=== PATIENT | female | born 1965 | race Asian ===

== ENCOUNTER → 2016-06-07 | Outpatient (CLI) | payer OTHER ==
[~2016-06-07] MED LIST: CALCTAB5 PO; CHOL100010 PO; CYAN10005 PO
--- NOTE | 2016-06-08 13:36 | MAMMOGRAPHY REPORT ---
BILATERAL DIGITAL SCREENING MAMMOGRAM TOMOSYNTHESIS WITH CAD: 06/07/2016 CLINICAL HISTORY: Routine screening. Patient has no complaints. TECHNIQUE: Breast tomosynthesis in addition to standard 2D mammography was performed. Current study was also evaluated with a Computer Aided Detection (CAD) system. COMPARISON: Comparison is made to exams dated: 06/05/2015 mammogram, 05/31/2013 mammogram, 11/20/2014 m ammogram, 06/06/2014 ultrasound, 06/06/2014 mammogram, and 06/03/2014 mammogram - [facility]. BREAST COMPOSITION: The tissue of both breasts is heterogeneously dense, which may obscure small ma sses. FINDINGS: There are bilateral circumscribed masses scattered in the breasts, fluctuating in size com paring to prior mammograms, most compatible with fluctuating cysts. No suspicious spiculated or irr egular mass, focal area of architectural distortion or cluster of suspicious microcalcifications is seen. IMPRESSION: ACR BI-RADS CATEGORY 1: NEGATIVE There is no mammographic evidence of malignancy. A 1 year screening mammogram is recommended. The p atient will receive written notification of the results. Approximately 10% of breast cancers are not detected with mammography. A negative mammographic repor t should not delay biopsy if a clinically suggestive mass is present. Rosa Cortez M.D. ay/:06/07/2016 16:06:36 It Consulting Director: Juve MULLER(R)(M), [facility] letter sent: Normal 1/2 BI-RADS Code: ACR BI-RADS Category 1: Negative
== END | disposition home or self-care (01) ==
LOC: C.MAMM 10:24
PROVIDERS: ATTEND Nurse Practitioner Family
DX: Z12.31 Encounter for screening mammogram for malignant neoplasm of breast (principal)

== ENCOUNTER → 2016-08-24 | Outpatient (CLI) | payer OTHER | END | disposition home or self-care (01) | LOC: C.CPL 14:45 | PROVIDERS: ATTEND Orthopaedic Surgery Sports Medicine | DX: Z96.9 Presence of functional implant, unspecified (principal) ==

== ENCOUNTER → 2016-11-26 | Outpatient (CLI) | payer OTHER ==
[2016-11-26 11:49] LABS: ALT/SGPT 31 U/L (12-78); AST/SGOT 22 U/L (15-37); BLOOD UREA NITROGEN 15 mg/dl (7-18); BUN/CREATININE RATIO 20.6 (10-20); CALCIUM 8.9 mg/dl (8.5-10.1); CARBON DIOXIDE 27 mmol/L (21-32); CHLORIDE 111 mmol/L (98-107); CHOLESTEROL 168 mg/dl (0-200); CREATININE 0.73 mg/dl (0.60-1.20); GLUCOSE 86 mg/dl (70-99); SODIUM 141 mmol/L (136-145)
[2016-11-26 11:51] LABS: ALB/GLOB RATIO 1.2 (0.9-2); ALKALINE PHOSPHATASE 66 U/L (45-117); CHOLESTEROL/HDL RATIO 2.5; HDL CHOLESTEROL 67 mg/dl; LDL CHOLESTEROL CALCULATED 82 mg/dl; TRIGLYCERIDES 96 mg/dl (0-150); VERY LOW DENSITY LIPOPROT CALC 19 mg/dl
== END | disposition home or self-care (01) ==
LOC: C.LABBC 08:02
PROVIDERS: ATTEND Nurse Practitioner Family
DX: Z13.1 Encounter for screening for diabetes mellitus (principal); Z13.220 Encounter for screening for lipoid disorders; Z11.59 Encounter for screening for other viral diseases

== ENCOUNTER → 2016-12-08 | Outpatient (CLI) | payer OTHER ==
[~2016-12-08] MED LIST changes: +GADAVIST IV PRN
--- NOTE | 2016-12-08 10:32 | DIAGNOSTIC IMAGING REPORT ---
BRAIN COMBO HISTORY: 51 years-old Female D32.[id number] [id number] E [id number] acute dizziness with history of meningioma. Surgery in 1998. Acute headaches with visual changes. COMPARISON: Brain MR 07/21/2015 TECHNIQUE: Multiplanar multisequence MRI the brain was obtained following the intravenous administration of 6 mL Gadavist. FINDINGS: There is no restricted diffusion to suggest acute ischemia. Midline structures including the corpus callosum, brainstem, optic chiasm, pituitary and pineal glands are unremarkable in the sagittal T1 sequence. No cerebellar tonsillar herniation. No pathologic parenchymal blooming artifact identified. Micrometallic artifact is noted within the region of the surgical bed adjacent to the left parietal lobe. Mild volume loss, gliosis and encephalomalacia is seen within the distribution with an avidly enhancing dural based 7 x 5 x 5 mm lesion seen nicely on image 21 of series 10 and image 18 of series 9, previously measuring 6 x 5 x 5 mm on study dated 07/21/2015 when measured in a similar fashion. No new enhancing lesions are identified. Minimal periventricular and subcortical T2/FLAIR prolongation is again seen suggesting background chronic microvascular ischemic changes. No acute intracranial hemorrhage, midline shift, abnormal extra-axial collections or hydrocephalus identified. Major flow voids at the skull base appear patent. Orbits are symmetric. Mastoid air cells and middle ear cavities are generally clear. IMPRESSION: 1. Stable exam with unchanged size of a circumscribed subcentimeter avidly enhancing dural based lesion at the surgical bed adjacent to the left parietal lobe suggesting recurrent or residual meningioma. 2. Mild gliosis and encephalomalacia is again seen within the left parietal lobe at the area of postsurgical change. 3. Mild background chronic microvascular ischemic changes. 4. No acute intracranial abnormality. The above report was generated using voice recognition software. It may contain grammatical, syntax or spelling errors. Electronically signed by: Orlando Sequeira M.D. 12/08/2016 10:31 AM Dictated Date/Time: 12/08/2016 10:24 AM
== END | disposition home or self-care (01) ==
LOC: C.MRIBC 09:22
PROVIDERS: ATTEND Nurse Practitioner Family
DX: D32.9 Benign neoplasm of meninges, unspecified (principal); R42 Dizziness and giddiness

== ENCOUNTER → 2017-06-08 | Outpatient (CLI) | payer OTHER ==
[~2017-06-08] MED LIST changes: -GADAVIST IV PRN
--- NOTE | 2017-06-09 07:50 | MAMMOGRAPHY REPORT ---
BILATERAL DIGITAL SCREENING MAMMOGRAM TOMOSYNTHESIS WITH CAD: 06/08/2017 CLINICAL HISTORY: Routine screening. Patient has no complaints. TECHNIQUE: Breast tomosynthesis in addition to standard 2D mammography was performed. Current study was also evaluated with a Computer Aided Detection (CAD) system. COMPARISON: Comparison is made to exams dated: 06/07/2016 mammogram, 06/05/2015 mammogram, 11/20/2014 ma mmogram, 06/06/2014 ultrasound, 06/03/2014 mammogram, and 05/31/2013 mammogram - [facility] enter. BREAST COMPOSITION: The tissue of both breasts is heterogeneously dense, which may obscure small mas ses. FINDINGS: No suspicious masses, calcifications, or areas of architectural distortion are noted in ei ther breast. There has been no significant interval change compared to prior exams. Circumscribed be nign-appearing left breast masses are not significantly changed. IMPRESSION: ACR BI-RADS CATEGORY 2: BENIGN There is no mammographic evidence of malignancy. A 1 year screening mammogram is recommended. The pa tient will receive written notification of the results. Approximately 10% of breast cancers are not detected with mammography. A negative mammographic report should not delay biopsy if a clinically suggestive mass is present. Migdalia Enrique M.D. ah/:06/08/2017 12:03:22 Distribution Dispatcher: Etelvina HINSON)(Linda), [facility] letter sent: Normal 1/2 BI-RADS Code: ACR BI-RADS Category 2: Benign
== END | disposition home or self-care (01) ==
LOC: C.MAMM 10:29
PROVIDERS: ATTEND Nurse Practitioner Family
DX: Z12.31 Encounter for screening mammogram for malignant neoplasm of breast (principal)

== ENCOUNTER 2021-09-07 11:18 | Observation (INO) ==
[2021-09-07] MEDS ORDERED: methylPREDNISolone 125 MG/2 ML VIAL IV STA (11:35)
[2021-09-07] MEDS ORDERED: FAMOTIDINE 20MG IV PUSH 20 MG/5 ML SYR IV STA (11:35)
[2021-09-07] MEDS ORDERED: SODIUM CHLORIDE 0.9% 1000ML 1,000 ML IV ONE (11:35)
[2021-09-07] MEDS ORDERED: EPINEPHrine INJ 1 MG/ML AMP IM STA (11:35)
[2021-09-07] MEDS ORDERED: diphenhydrAMINE 50 MG/ML VIAL IV STA (11:35)
--- NOTE | 2021-09-07 11:54 | Emergency Department Note ---
History of Present Illness General Chief complaint: Allergic Reaction Stated complaint: BEE STING Time Seen by Provider: 09/07/21 11:26 History of Present Illness Maximum Pain Intensity: 5 56-year-old female who presents to the emergency department with her via private transportation for evaluation of a bee sting allergy. The reports that they have for beehives at their home. The patient reports that she was stung by 2 bees this morning. Within approximately 45 minutes, she had taken Tylenol and Benadryl, and is still having persistent symptoms of facial redness, swelling and itching. The patient has been stung by bees twice in the past, and reports that this reaction is much worse. She does not feel any palpitations, shortness of breath or sensation of throat closure. She does not have EpiPen's at home. Home Medications Medication Instructions Recorded Confirmed Type multivitamin 1 tab PO QAM 09/07/21 09/07/21 History tamoxifen 20 mg tablet 20 mg PO QAM 09/07/21 09/07/21 History vitamin E 400 unit tablet 400 unit PO DAILY 09/07/21 09/07/21 History Allergies Allergy/AdvReac Type Severity Reaction Status Date / Time bee pollen Allergy Severe facial Verified 09/07/21 15:40 swelling,urticaria adhesive tape AdvReac Mild SKIN Verified 09/07/21 15:40 SENSITIVE Past Med/Surg History Medical History Ductal carcinoma in situ (DCIS) of left breast Hx of migraines Surgical History History of breast lump/mass excision surgery 03-28-2019 History of bunionectomy RT/LEFT / surgery 2001 and 2002 History of colonoscopy 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 Sister No problems noted. Sister No problems noted. Brother No problems noted. Brother No problems noted. 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 Other Information That Helps Us Care for You: No Feels Safe at Home: Yes Safety Concerns: Feels Safe At This Time Childhood Exposure to Second-Hand Smoke: No Dental Care, Regularly: Yes Physical Activity Frequency: 3-4 Times per Week Seatbelt Use: always Sunscreen Use: Yes Assistive Devices: Glasses Assistive Devices Comment: Reading glasses Review of Systems 10 system review was performed and was negative except for pertinent positives and negatives as indicated in history of present illness Physical Exam Vital Signs Vital Signs - 24 hr 09/07/21 11:23 09/07/21 11:47 09/07/21 12:02 Temperature 37.0 C Temperature Source Oral Pulse Rate 101 H 106 H Pulse Rate [Apical] 74 Pulse Rate from SpO2 Sensor Respiratory Rate 18 22 19 Respiratory Effort / Characteristics Non-Labored Blood Pressure 115/62 Blood Pressure [Left Arm] 78/56 L Blood Pressure Mean 79 Blood Pressure Mean [Left Arm] 63 Pulse Oximetry 93 97 97 Oxygen Delivery Method Room Air Room Air Room Air Sepsis Recent Fever Within 48 Hours No Sepsis New/Unexplained Change in Mental Status No Sepsis Action Taken by Nursing No Action Required Pulse Oximetry Post Tiitration 97 09/07/21 12:09 09/07/21 12:10 09/07/21 12:12 Temperature Temperature Source Pulse Rate 77 78 69 Pulse Rate [Apical] Pulse Rate from SpO2 Sensor 78 78 69 Respiratory Rate 14 18 16 Respiratory Effort / Characteristics Blood Pressure 87/62 L Blood Pressure [Left Arm] Blood Pressure Mean 70 Blood Pressure Mean [Left Arm] Pulse Oximetry 97 96 95 Oxygen Delivery Method Sepsis Recent Fever Within 48 Hours Sepsis New/Unexplained Change in Mental Status Sepsis Action Taken by Nursing Pulse Oximetry Post Tiitration 09/07/21 12:15 09/07/21 12:20 09/07/21 12:30 Temperature Temperature Source Pulse Rate 66 71 64 Pulse Rate [Apical] Pulse Rate from SpO2 Sensor 67 70 65 Respiratory Rate 17 16 16 Respiratory Effort / Characteristics Blood Pressure 88/63 L Blood Pressure [Left Arm] Blood Pressure Mean 71 Blood Pressure Mean [Left Arm] Pulse Oximetry 97 97 97 Oxygen Delivery Method Sepsis Recent Fever Within 48 Hours Sepsis New/Unexplained Change in Mental Status Sepsis Action Taken by Nursing Pulse Oximetry Post Tiitration 09/07/21 12:40 09/07/21 12:45 09/07/21 12:46 Temperature Temperature Source Pulse Rate 69 64 66 Pulse Rate [Apical] Pulse Rate from SpO2 Sensor 69 64 66 Respiratory Rate 17 15 15 Respiratory Effort / Characteristics Blood Pressure 79/57 L 80/54 L Blood Pressure [Left Arm] Blood Pressure Mean 64 62 Blood Pressure Mean [Left Arm] Pulse Oximetry 97 95 97 Oxygen Delivery Method Sepsis Recent Fever Within 48 Hours Sepsis New/Unexplained Change in Mental Status Sepsis Action Taken by Nursing Pulse Oximetry Post Tiitration 09/07/21 12:50 09/07/21 12:53 09/07/21 12:55 Temperature Temperature Source Pulse Rate 65 64 64 Pulse Rate [Apical] Pulse Rate from SpO2 Sensor 65 65 63 Respiratory Rate 19 15 14 Respiratory Effort / Characteristics Blood Pressure 79/51 L 76/45 L 82/47 L Blood Pressure [Left Arm] Blood Pressure Mean 60 55 58 Blood Pressure Mean [Left Arm] Pulse Oximetry 98 99 99 Oxygen Delivery Method Sepsis Recent Fever Within 48 Hours Sepsis New/Unexplained Change in Mental Status Sepsis Action Taken by Nursing Pulse Oximetry Post Tiitration 09/07/21 13:00 09/07/21 13:02 09/07/21 13:03 Temperature Temperature Source Pulse Rate 71 76 79 Pulse Rate [Apical] Pulse Rate from SpO2 Sensor 71 77 Respiratory Rate 15 17 15 Respiratory Effort / Characteristics Blood Pressure 80/48 L 84/48 L Blood Pressure [Left Arm] Blood Pressure Mean 58 60 Blood Pressure Mean [Left Arm] Pulse Oximetry 98 98 Oxygen Delivery Method Sepsis Recent Fever Within 48 Hours Sepsis New/Unexplained Change in Mental Status Sepsis Action Taken by Nursing Pulse Oximetry Post Tiitration 09/07/21 13:05 09/07/21 13:10 09/07/21 13:11 Temperature Temperature Source Pulse Rate 72 78 78 Pulse Rate [Apical] Pulse Rate from SpO2 Sensor Respiratory Rate 13 17 18 Respiratory Effort / Characteristics Blood Pressure 85/45 L 81/45 L Blood Pressure [Left Arm] Blood Pressure Mean 58 57 Blood Pressure Mean [Left Arm] Pulse Oximetry Oxygen Delivery Method Sepsis Recent Fever Within 48 Hours Sepsis New/Unexplained Change in Mental Status Sepsis Action Taken by Nursing Pulse Oximetry Post Tiitration 09/07/21 13:20 09/07/21 13:23 09/07/21 13:24 Temperature Temperature Source Pulse Rate 69 68 70 Pulse Rate [Apical] Pulse Rate from SpO2 Sensor Respiratory Rate 16 17 17 Respiratory Effort / Characteristics Blood Pressure 82/55 L 73/36 L 93/45 L Blood Pressure [Left Arm] Blood Pressure Mean 64 48 61 Blood Pressure Mean [Left Arm] Pulse Oximetry 98 Oxygen Delivery Method Sepsis Recent Fever Within 48 Hours Sepsis New/Unexplained Change in Mental Status Sepsis Action Taken by Nursing Pulse Oximetry Post Tiitration 09/07/21 13:25 09/07/21 13:30 09/07/21 13:40 Temperature Temperature Source Pulse Rate 65 69 66 Pulse Rate [Apical] Pulse Rate from SpO2 Sensor 70 66 Respiratory Rate 16 17 17 Respiratory Effort / Characteristics Blood Pressure 82/55 L 104/44 L 109/47 L Blood Pressure [Left Arm] Blood Pressure Mean 64 64 67 Blood Pressure Mean [Left Arm] Pulse Oximetry 97 96 Oxygen Delivery Method Sepsis Recent Fever Within 48 Hours Sepsis New/Unexplained Change in Mental Status Sepsis Action Taken by Nursing Pulse Oximetry Post Tiitration 09/07/21 13:50 09/07/21 14:00 09/07/21 14:07 Temperature Temperature Source Pulse Rate 68 79 82 Pulse Rate [Apical] Pulse Rate from SpO2 Sensor 69 77 78 Respiratory Rate 17 17 14 Respiratory Effort / Characteristics Blood Pressure 111/46 L 116/52 L 126/55 L Blood Pressure [Left Arm] Blood Pressure Mean 67 73 78 Blood Pressure Mean [Left Arm] Pulse Oximetry 96 98 98 Oxygen Delivery Method Sepsis Recent Fever Within 48 Hours Sepsis New/Unexplained Change in Mental Status Sepsis Action Taken by Nursing Pulse Oximetry Post Tiitration 09/07/21 14:10 09/07/21 14:20 09/07/21 14:30 Temperature Temperature Source Pulse Rate 71 72 69 Pulse Rate [Apical] Pulse Rate from SpO2 Sensor 72 71 69 Respiratory Rate 16 16 14 Respiratory Effort / Characteristics Blood Pressure Blood Pressure [Left Arm] Blood Pressure Mean Blood Pressure Mean [Left Arm] Pulse Oximetry 96 94 95 Oxygen Delivery Method Sepsis Recent Fever Within 48 Hours Sepsis New/Unexplained Change in Mental Status Sepsis Action Taken by Nursing Pulse Oximetry Post Tiitration 09/07/21 14:34 09/07/21 14:40 09/07/21 14:52 Temperature Temperature Source Pulse Rate 70 72 74 Pulse Rate [Apical] Pulse Rate from SpO2 Sensor 70 72 74 Respiratory Rate 15 13 17 Respiratory Effort / Characteristics Blood Pressure 129/52 L 129/50 L Blood Pressure [Left Arm] Blood Pressure Mean 77 76 Blood Pressure Mean [Left Arm] Pulse Oximetry 95 95 97 Oxygen Delivery Method Sepsis Recent Fever Within 48 Hours Sepsis New/Unexplained Change in Mental Status Sepsis Action Taken by Nursing Pulse Oximetry Post Tiitration 09/07/21 15:00 09/07/21 15:10 09/07/21 15:15 Temperature Temperature Source Pulse Rate 72 75 79 Pulse Rate [Apical] Pulse Rate from SpO2 Sensor 72 76 78 Respiratory Rate 16 18 16 Respiratory Effort / Characteristics Blood Pressure 122/57 L 131/65 Blood Pressure [Left Arm] Blood Pressure Mean 78 87 Blood Pressure Mean [Left Arm] Pulse Oximetry 96 97 95 Oxygen Delivery Method Sepsis Recent Fever Within 48 Hours Sepsis New/Unexplained Change in Mental Status Sepsis Action Taken by Nursing Pulse Oximetry Post Tiitration 09/07/21 15:20 09/07/21 15:30 09/07/21 15:40 Temperature Temperature Source Pulse Rate 76 73 87 Pulse Rate [Apical] Pulse Rate from SpO2 Sensor 76 74 89 Respiratory Rate 21 20 26 H Respiratory Effort / Characteristics Blood Pressure 124/60 Blood Pressure [Left Arm] Blood Pressure Mean 81 Blood Pressure Mean [Left Arm] Pulse Oximetry 97 95 96 Oxygen Delivery Method Sepsis Recent Fever Within 48 Hours Sepsis New/Unexplained Change in Mental Status Sepsis Action Taken by Nursing Pulse Oximetry Post Tiitration 09/07/21 15:45 09/07/21 15:50 09/07/21 16:00 Temperature Temperature Source Pulse Rate 86 85 86 Pulse Rate [Apical] Pulse Rate from SpO2 Sensor 86 86 87 Respiratory Rate 17 17 22 Respiratory Effort / Characteristics Blood Pressure 130/67 Blood Pressure [Left Arm] Blood Pressure Mean 88 Blood Pressure Mean [Left Arm] Pulse Oximetry 94 94 94 Oxygen Delivery Method Sepsis Recent Fever Within 48 Hours Sepsis New/Unexplained Change in Mental Status Sepsis Action Taken by Nursing Pulse Oximetry Post Tiitration 09/07/21 16:10 Temperature Temperature Source Pulse Rate 80 Pulse Rate [Apical] Pulse Rate from SpO2 Sensor 80 Respiratory Rate 13 Respiratory Effort / Characteristics Blood Pressure Blood Pressure [Left Arm] Blood Pressure Mean Blood Pressure Mean [Left Arm] Pulse Oximetry 95 Oxygen Delivery Method Sepsis Recent Fever Within 48 Hours Sepsis New/Unexplained Change in Mental Status Sepsis Action Taken by Nursing Pulse Oximetry Post Tiitration CONSTITUTIONAL: Healthy and well nourished. Alert and oriented X 3. Patient appears in mild discomfort. HEENT: Patient has mild facial erythema and edema. No other angioedema appreciated. Pupils equal, round and reactive. NECK: Full active range of motion without discomfort. LYMPHATICS: No cervical chain adenopathy. RESPIRATORY: Clear to auscultation bilaterally with no wheezing, crackles, rhonchi or stridor. CARDIOVASCULAR: Regular rate and rhythm with no murmurs, rubs or gallops. GASTROINTESTINAL: Bowel sounds present in all quadrants. Soft and nontender to palpation. MUSCULOSKELETAL: Full range of motion of all joints without discomfort. INTEGUMENTARY: Patient has other erythema over the body, including the extremities and sun exposed surfaces. HEMATOLOGIC: No ecchymosis or petechiae. PSYCHIATRIC: Positive affect. NEUROLOGIC: No focal neurologic deficits noted. Course Course Patient history and physical exam were performed. Nurses notes were reviewed. Vital signs were reviewed, showing a mild tachycardia of 106 bpm. The patient is otherwise normotensive and has O2 saturation of 97% on room air. IV access was established, and labs were drawn. The patient was administered IV Benadryl, Pepcid, Solu-Medrol and IM epinephrine. The patient was also placed on compliance monitor while in the emergency department. ECG (which was performed after medication administration) shows a normal sinus rhythm with ischemic changes in inferior and anterolateral leads. Portable chest x-ray was normal. Immediately after the patient was administered epinephrine, her blood pressure dropped down into the 70s over 50s. Patient also had chest pain as well. Patient did have several additional episodes of similar hypotension. Although an order for a bolus of a liter normal saline was entered, it was not being administered at the appropriate rate. Her saline was then placed on an IV pump. She was also placed in reverse Trendelenburg position, and did have improvement of her blood pressure. Review of prior medical records does show that the patient has a history of hypotension. Review of labs shows a mild leukopenia, ever the patient does have this is baseline. Further review of labs shows a normal CMP other than a mildly elevated random glucose. After noting that the patient did have an abnormal ECG, troponin was ordered, showing an elevation of 249. The patient was frequently reassessed by me approximately every 20 to 30 minutes, with improvement of symptoms. She did report some mild throat tightness, otherwise reported relief of all other symptoms. After discussing the case further with Dr. Neff regarding her abnormal ECG, a repeat ECG was performed approximate 2.5 hours after the initial ECG, and had normalized. I did advise Dr. Neff of the patient's elevated troponin, and he also indicated that he was told by the patient's nurse that she also had hematuria as well. Dr. Neff has recommended hospitalist evaluation. The case was then further discussed with the [facility] hospitalist service (Dr. Gan), who evaluated the patient and agrees with admission. Unfortunately, although the medication order for IM epinephrine was inadvertently read as an IV administration, likely explaining the patient's reaction. The error was discussed with the hospitalist, Dr. Neff, charge nurse and the patient's nurse. Dr. Gan has already talked with the patient regarding the medication error. Administered Medications Diphenhydramine HCl (Diphenhydramine 50 Mg/Ml Vial) 25 mg IV Q6H JULIANE Stop: 09/08/21 12:01 Last Admin: 09/07/21 18:49 Dose: 25 mg Documented by: [id number] Discontinued Medications Diphenhydramine HCl (Diphenhydramine 50 Mg/Ml Vial) 50 mg IV NOW STA Stop: 09/07/21 11:36 Last Admin: 09/07/21 11:46 Dose: 50 mg Documented by: [id number] Epinephrine HCl (Epinephrine Inj 1 Mg/Ml Amp) 0.3 mg IM NOW STA Stop: 09/07/21 11:36 Last Admin: 09/07/21 11:45 Dose: 0.3 mg Documented by: [id number] Famotidine (Pepcid 20mg Iv Push) 20 mg in 5 mls @ 2.5 mls/min IV NOW STA Stop: 09/07/21 11:36 Last Admin: 09/07/21 11:46 Dose: 2.5 mls/min Documented by: [id number] Sodium Chloride (Nss 1000ml) 1,000 mls @ 999 mls/hr IV .Q1H1M ONE Stop: 09/07/21 12:35 Last Infusion: 09/07/21 13:50 Dose: 0 mls/hr Documented by: [id number] Admin: 09/07/21 11:47 Dose: 999 mls/hr Documented by: [id number] Lactated Ringer's (Lr) 1,000 mls @ 999 mls/hr IV .Q1H1M STA Stop: 09/07/21 17:53 Last Infusion: 09/07/21 18:52 Dose: 0 mls/hr Documented by: [id number] Admin: 09/07/21 17:51 Dose: 999 mls/hr Documented by: [id number] Methylprednisolone (Methylprednisolone 125 Mg/2 Ml Vial) 125 mg IV NOW STA Stop: 09/07/21 11:36 Last Admin: 09/07/21 11:46 Dose: 125 mg Documented by: [id number] Critical Care Time Critical Care Time: Yes Total Critical Care Time: 50 I have personally approximately 50 minutes of critical care time in the direct management of this patient. This includes bedside care, interpretation of diagnostic studies, and testing, discussion with consultants, patient, and family members, and other required patient management activities. This 50 minutes is in excess of all separately billable procedures. The patient was administered epinephrine because of the severity of her reaction, which warranted further close observation. Medical Decision Making Medical Records Attestation: I reviewed the patient's medical records. Home Medications Current Medication List: was personally reviewed by me Laboratory Data Attestation: I reviewed the patient's lab results. Result diagrams: 09/07/21 11:37 09/07/21 13:01 Lab Results 09/07/21 09/07/21 09/07/21 Range/Units 11:37 11:37 13:01 WBC 4.10 L (4.8-10.8) K/uL RBC 4.90 (4.2-5.4) M/uL Hgb 15.4 (12.0-16.0) g/dL Hct 45.2 (37-47) % MCV 92.2 (80-100) fL MCH 31.4 (25-34) pg MCHC 34.1 (32-36) g/dL RDW Std Deviation 45.4 (36.4-46.3) fL RDW Coeff of Ronel 13.4 (11.5-14.5) % Plt Count 207 (130-400) K/uL MPV 11.7 H (7.4-10.4) fL Immature Gran % (Auto) 0.5 % Neut % (Auto) 49.8 % Lymph % (Auto) 39.0 % [place] % (Auto) 9.3 % Eos % (Auto) 1.2 % Baso % (Auto) 0.2 % Neut # (Auto) 2.04 (1.4-6.5) K/uL Lymph # (Auto) 1.60 (1.2-3.4) K/uL [place] # (Auto) 0.38 (0.11-0.59) K/uL Eos # (Auto) 0.05 (0-0.5) K/uL Baso # (Auto) 0.01 (0-0.2) K/uL Immature Gran # (Auto) 0.02 (0.00-0.02) K/uL Sodium 137 (136-145) mmol/L Potassium TNP 3.7 Chloride 107 (98-107) mmol/L Carbon Dioxide 22 (21-32) mmol/L Anion Gap 8 (3-11) BUN 14 (6-23) mg/dl Creatinine 0.72 (0.6-1.2) mg/dl Est Cr Clr Drug Dosing 70.1 ml/min Est GFR ( Amer) 107.0 ml/min Est GFR (Non-Af Amer) 92.3 ml/min BUN/Creatinine Ratio 19.4 (10-20) Glucose 136 H (70-99(Fasting)) mg/dl Calcium 9.1 (8.5-10.1) mg/dl Total Bilirubin 0.4 (0.2-1.0) mg/dl AST TNP 25 ALT 24 (7-52) U/L Alkaline Phosphatase 50 (34-104) U/L Troponin I High Sens (0-14) pg/ml Total Protein 6.7 (6.0-8.3) gm/dl Albumin 4.1 (3.4-5.0) gm/dl Globulin 2.6 (2.5-4.0) gm/dl Albumin/Globulin Ratio 1.6 (0.9-2) SARS-CoV-2, RNA, NAAT (NEGATIVE) 09/07/21 09/07/21 09/07/21 Range/Units 13:01 15:16 15:56 WBC (4.8-10.8) K/uL RBC (4.2-5.4) M/uL Hgb (12.0-16.0) g/dL Hct (37-47) % MCV (80-100) fL MCH (25-34) pg MCHC (32-36) g/dL RDW Std Deviation (36.4-46.3) fL RDW Coeff of Ronel (11.5-14.5) % Plt Count (130-400) K/uL MPV (7.4-10.4) fL Immature Gran % (Auto) % Neut % (Auto) % Lymph % (Auto) % [place] % (Auto) % Eos % (Auto) % Baso % (Auto) % Neut # (Auto) (1.4-6.5) K/uL Lymph # (Auto) (1.2-3.4) K/uL [place] # (Auto) (0.11-0.59) K/uL Eos # (Auto) (0-0.5) K/uL Baso # (Auto) (0-0.2) K/uL Immature Gran # (Auto) (0.00-0.02) K/uL Sodium (136-145) mmol/L Potassium Chloride (98-107) mmol/L Carbon Dioxide (21-32) mmol/L Anion Gap (3-11) BUN (6-23) mg/dl Creatinine (0.6-1.2) mg/dl Est Cr Clr Drug Dosing ml/min Est GFR ( Amer) ml/min Est GFR (Non-Af Amer) ml/min BUN/Creatinine Ratio (10-20) Glucose (70-99(Fasting)) mg/dl Calcium (8.5-10.1) mg/dl Total Bilirubin (0.2-1.0) mg/dl AST ALT (7-52) U/L Alkaline Phosphatase (34-104) U/L Troponin I High Sens 249.0 H* 1016.2 H* D (0-14) pg/ml Total Protein (6.0-8.3) gm/dl Albumin (3.4-5.0) gm/dl Globulin (2.5-4.0) gm/dl Albumin/Globulin Ratio (0.9-2) SARS-CoV-2, RNA, NAAT NEGATIVE (NEGATIVE) Imaging Data Attestation: I personally reviewed and interpreted this imaging study as follows: My Impression: My interpretation of reportable chest x-ray does not show any obvious pulmonary edema, pneumothorax, cardiac prominence or consolidations. Radiologist report was also reviewed. Radiologist's Impression: Chest X-Ray 09/07/21 11:35 XR chest 1V portable HISTORY: 56 years-old Female Allergic reaction acute shortness of breath COMPARISON: Chest radiograph 01/15/2019 TECHNIQUE: Portable AP view of the chest FINDINGS: Cardiomediastinal and hilar silhouettes are within normal limits. There is no pneumothorax, pleural effusion, airspace consolidation or overt pulmonary edema. The bones of the chest appear grossly intact. Mild lower thoracic levoscoliosis. IMPRESSION: No acute process. ACT 112: Negative or not required by law. The above report was generated using voice recognition software. It may contain grammatical, syntax or spelling errors. Electronically signed by: Kosta Sequeira M.D. 09/07/2021 12:13 PM ECG Data Attestation: I personally reviewed and interpreted this ECG as follows: Indication: + chest pain and + other (Allergic reaction) Rate (beats per minute): 77 Rhythm: + normal sinus ECG Intervals/blocks: + Normal QRS ECG ST segments: + ST depression (Anterolateral and inferior) Comparison ECG Date: from (01/15/2019) Change: the following changes noted Additional Comments: New ischemic changes in inferior and anterolateral leads. Blood Pressure Blood Pressure Findings: Low blood pressure MDM Narrative Cardiac monitoring: An order was placed for continuous cardiac monitoring. The monitor shows a rate of 77 bpm with a normal sinus rhythm. security monitor history was reviewed throughout the evaluation, and no dysrhythmias were noted. Start Time: 11:35 AM Reason: ED Observation for anaphylactic reaction to a bee sting, requiring epinephrine administration. Past Medical Hx, Fam Hx and Soc Hx as documented in previous sections. Assessment(s): Frequent reassessments were performed given the patient's anaphylactic condition. Summary: See previous ED Course section for further details. Disposition: Patient was ultimately admitted for further observation of her anaphylactic reaction, as well as medication administration error with IV administration of epinephrine as opposed to ordered IM epinephrine. Total Time: 3 hours Patient presents emergency department for an allergic reaction secondary to a bee sting. Given that the patient did have throat tightness and facial swelling, I did feel that epinephrine administration was warranted. Unfortunately, there was a medication error as the nurse inadvertently administer the epinephrine IVP. This would explain the patient's symptoms after the injection, as well as her acute hypotension, ischemic changes on ECG, as well as elevated troponin. The patient otherwise reported improvement of symptoms with her facial swelling and throat tightness. Impression & Plan Anaphylactic reaction to bee sting, Acute hypotension, Cardiac ischemia, Elevated troponin I level, Hematuria Discharge Plan Visit Data Chief Complaint: Allergic Reaction Stated Complaint: BEE STING ED Provider: Rory Neff ED Midlevel Provider: George Mcleod Discharge Problem: Anaphylactic reaction to bee sting, Acute hypotension, Cardiac ischemia, Elevated troponin I level, Hematuria Patient Disposition: Admitted As Inpatient Discharge Instructions Interventions: ED Discharge Assessment Last Done: 09/07/21 18:57 Discharge Problem: Anaphylactic reaction to bee sting Qualifiers: Encounter type: initial encounter Injury intent: accidental or unintentional Qualified Code(s): T63.441A - Toxic effect of venom of bees, accidental (unintentional), initial encounter Hematuria Qualifiers: Hematuria type: gross Qualified Code(s): R31.0 - Gross hematuria
--- NOTE | 2021-09-07 12:14 | XRay Report ---
XR chest 1V portable HISTORY: 56 years-old Female Allergic reaction acute shortness of breath COMPARISON: Chest radiograph 01/15/2019 TECHNIQUE: Portable AP view of the chest FINDINGS: Cardiomediastinal and hilar silhouettes are within normal limits. There is no pneumothorax, pleural e ffusion, airspace consolidation or overt pulmonary edema. The bones of the chest appear grossly intac t. Mild lower thoracic levoscoliosis. IMPRESSION: No acute process. ACT 112: Negative or not required by law. The above report was generated using voice recognition software. It may contain grammatical, syntax o r spelling errors. Electronically signed by: Kosta Sequeira M.D. 09/07/2021 12:13 PM
[2021-09-07 12:19] LABS: Basophils # (auto) 0.01 K/uL (0-0.2); Basophils % (auto) 0.2 %; Eosinophils # (auto) 0.05 K/uL (0-0.5); Eosinophils % (auto) 1.2 %; Hematocrit (blood only) 45.2 % (37-47); Hemoglobin 15.4 g/dL (12.0-16.0); Immature Granulocytes # (auto) 0.02 K/uL (0.00-0.02); Immature Granulocytes % (auto) 0.5 %; Mean Corpuscular Hemoglobin 31.4 pg (25-34); Mean Corpuscular Hgb Conc 34.1 g/dL (32-36); Mean Corpuscular Volume 92.2 fL (80-100); Mean Platelet Volume 11.7 fL (7.4-10.4); Monocytes # (auto) 0.38 K/uL (0.11-0.59); Monocytes % (auto) 9.3 %; Neutrophils # (auto) 2.04 K/uL (1.4-6.5); Neutrophils % (auto) 49.8 %; Platelet Count 207 K/uL (130-400); RDW Coefficient of Variation 13.4 % (11.5-14.5); RDW Standard Deviation 45.4 fL (36.4-46.3)
--- NOTE | 2021-09-07 13:18 | Electrocardiogram Report ---
Test Reason : Blood Pressure : / mmHG Vent. Rate : 077 BPM Atrial Rate : 077 BPM P-R Int : 128 ms QRS Dur : 078 ms QT Int : 396 ms P-R-T Axes : 048 047 -35 degrees QTc Int : 448 ms Normal sinus rhythm Low voltage QRS Abnormal ECG When compared with ECG of 15-JAN-2019 14:04, ST now depressed in Inferior leads T wave inversion now evident in Inferior leads T wave inversion now evident in Anterolateral leads Confirmed by Salvador Fields ([id number]) on 09/07/2021 1:17:55 PM Referred By: Confirmed By:Salvador Fields
[2021-09-07 13:24] LABS: Alanine Aminotransferase 24 U/L (7-52); Albumin Globulin Ratio 1.6 (0.9-2); Albumin Level 4.1 gm/dl (3.4-5.0); Alkaline Phosphatase 50 U/L (34-104); Anion Gap 8 (3-11); BUN Creatinine Ratio 19.4 (10-20); Bilirubin,Total 0.4 mg/dl (0.2-1.0); Blood Urea Nitrogen 14 mg/dl (6-23); Calcium 9.1 mg/dl (8.5-10.1); Carbon Dioxide 22 mmol/L (21-32); Chloride 107 mmol/L (98-107); Creatinine Clr Calc Pharmacy 70.1 ml/min; Est GFR (Non-African American) 92.3 ml/min; Globulin 2.6 gm/dl (2.5-4.0); Glucose 136 mg/dl (70-99(Fasting)); Sodium 137 mmol/L (136-145); Total Protein 6.7 gm/dl (6.0-8.3)
[2021-09-07 13:53] LABS: Potassium 3.7 mmol/L (3.5-5.1)
--- NOTE | 2021-09-07 15:41 | History & Physical Report ---
Date of Service September 07, 2021 Assessment & Plan (1) Accidental medication error: Plan: Epinephrine given IV rather than IM. Will monitor overnight and get TTE to assess for any myocardial damage. Monitor on telemetry for post NSTEMI arrhythmia. Incident report to be filled in by charge nurse Aster as discussed. Patient informed of accidental medication error. (2) NSTEMI (non-ST elevated myocardial infarction): Plan: EKG widespread TWI with elevated troponin I increasing consistent with this. Suspect troponin I will peak at some point tonight and will continue to trend. Very low suspicion of significant underlying CAD given good exercise tolerance at baseline. LDL 57 [06/02]. Reasonable to risk profile with HbA1C in AM. NSTEMI secondary to accidental administration of epinephrine as IV - would still be at risk of arrhythmias post NSTEMI depending on myocardial damage therefore will observe on telemetry. No need for ASA, heparin, statin, metoprolol etc... unless cardiomyopathy present on TTE TTE pending (3) Acute hypotension: Plan: Following epinephrine, diphenhydramine, famotidine and Solu-Medrol. Was not on telemetry until midday about 25 minutes after her BP dropped however no arrhythmia at that time. Epinephrine was given incorrectly as IV rather than IM although would expect this to cause hypertension with vasoconstriction. Unclear if hypotension contributed towards NSTEMI vs. cardiogenic shock due to NSTEMI. TTE pending. Appears to now be resolved with IV fluids and no signs/symptoms heart failure therefore less likely cardiogenic shock, will defer further fluids pending echo results. (4) Anaphylactic reaction to bee sting: Plan: Appears to be doing better from this perspective. Continue diphenhydramine 25mg IV q6h Will defer further steroids to hospitalist tomorrow - may need one extra dose of prednisone if still having some symptoms. Will need EpiPen on discharge and follow up with allergy. (5) Hematuria: Plan: Occurred after administration of medications as above. Unclear mechanism of action for this ?ischemic event to bladder although currently not having any pain here for concern of perforation or ongoing ischemia. UA pending. Plan: VTE Prophylaxis - deferred pending further workup as above. Diet - heart healthy Disposition - admit to PCU Admission and Anticipated Discharge Date Admission Date: September 07, 2021 History of Present Illness Chief Complaint: Bee sting Primary Care Provider: Sheng Noble, III, JOSEFINA Mikayla Cuenca is a 56 year old female who presents to the ER with a bee sting. Patient noticed x2 bee stings on left thigh and below bra line on right side of her chest. Occurred around 10:15am. She started having intense itching everywhere therefore took Benadryl and acetaminophen. She then started noticing right facial swelling therefore decided to come to the emergency room. She noticed some mild shortness of breath while in the emergency room but without any throat or lip swelling. In the ER she was prescribed IV diphenhydramine, famotidine, Solu-medrol and IM epinephrine. Following administration of this she became hypotensive with BP 78/56 and the patient reports she felt cramping sensation all over with horrible headache and severe stomach cramp - she is unsure exactly how long this sensation lasted but she reports minutes but less than 5 minutes. EKG showed widespread TWI after medications were given and repeat EKG these have now resolved and patient has no ongoing chest pain. Troponin I 249 pg/ml. BP improved over the next 1.5 hours as NSS 1L bolus given. On suspicion epinephrine was administered IV rather than IM the patient confirmed she had no IM injection. I brought this the attention of the ER charge nurse who confirmed with the administrating RN that epinephrine was administered incorrectly intravenously. Before being seen she also had an episode of gross hematuria while in the ER. She had no urinary complaints prior coming to the ER however notes having a urinary tract infection in January 2021 with symptom of urgency which resolved with antibiotics. Although curiously urine culture at that time grew lactobacillus only. Prior to ER she denies any hematuria, urinary frequency, urgency, CVA tenderness, fever or chills. The patient reports no significant history of prior allergic reactions. She reports a history of chest pain that occurs at night for which she massages it (although unknown whether this helps), usually lasts for 2-5 minutes, she doesn't notice it during the day (or at least doesn't pay attention to it) and non-positional, exertional or worse in inspirational. She has good exercise tolerance and walks and bikes regularly without chest pain or shortness of b reath. Allergies Allergy/AdvReac Type Severity Reaction Status Date / Time bee pollen Allergy Severe facial Verified 09/07/21 15:40 swelling,urticaria adhesive tape AdvReac Mild SKIN Verified 09/07/21 15:40 SENSITIVE Home Medications Medication Instructions Recorded Confirmed Type multivitamin 1 tab PO QAM 09/07/21 09/07/21 History tamoxifen 20 mg tablet 20 mg PO QAM 09/07/21 09/07/21 History vitamin E 400 unit tablet 400 unit PO DAILY 09/07/21 09/07/21 History Past Med/Surg History Medical History Ductal carcinoma in situ (DCIS) of left breast Hx of migraines Surgical History History of breast lump/mass excision surgery 03-28-2019 History of bunionectomy RT/LEFT / surgery 2001 and 2002 History of colonoscopy 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 Sister No problems noted. Sister No problems noted. Brother No problems noted. Brother No problems noted. 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 Other Information That Helps Us Care for You: No Feels Safe at Home: Yes Safety Concerns: Feels Safe At This Time Childhood Exposure to Second-Hand Smoke: No Dental Care, Regularly: Yes Physical Activity Frequency: 3-4 Times per Week Seatbelt Use: always Sunscreen Use: Yes Assistive Devices: Glasses Assistive Devices Comment: Reading glasses Review of Systems Review of Systems: All systems reviewed & are unremarkable except as noted in HPI & below Physical Exam Constitutional: WD/WN, vitals as above Eyes: + anicteric sclerae; normal pupil size ENMT: external ear and nose normal, oropharynx normal Neck: trachea midline, no thyromegaly Respiratory: normal respiratory effort, lungs clear to auscultation Cardiovascular: RRR, no murmur, no edema Gastrointestinal (Abdomen): normal bowel sounds, soft, nontender, no hepatosplenomegaly Musculoskeletal: no cyanosis or clubbing, extremities motor strength 5/5 Skin: no rashes, warm and dry Neurologic: moves all extremities and awake; not confused Psychiatric: A+Ox3, euthymic affect Genitourinary: no CVA tenderness Results & Data Results & Data ([facility]) Vital Signs (Past 12 Hours) Vital Signs Temp Pulse Pulse Resp BP BP Pulse Ox 09/07/21 14:34 70 15 129/52 L 95 09/07/21 14:30 69 14 95 09/07/21 14:20 72 16 94 09/07/21 14:10 71 16 96 09/07/21 14:07 82 14 126/55 L 98 09/07/21 14:00 79 17 116/52 L 98 09/07/21 13:50 68 17 111/46 L 96 09/07/21 13:40 66 17 109/47 L 96 09/07/21 13:30 69 17 104/44 L 97 09/07/21 13:25 65 16 82/55 L 09/07/21 13:24 70 17 93/45 L 09/07/21 13:23 68 17 73/36 L 09/07/21 13:20 69 16 82/55 L 98 09/07/21 13:11 78 18 81/45 L 09/07/21 13:10 78 17 09/07/21 13:05 72 13 85/45 L 09/07/21 13:03 79 15 84/48 L 09/07/21 13:02 76 17 80/48 L 98 09/07/21 13:00 71 15 98 09/07/21 12:55 64 14 82/47 L 99 09/07/21 12:53 64 15 76/45 L 99 09/07/21 12:50 65 19 79/51 L 98 09/07/21 12:46 66 15 80/54 L 97 09/07/21 12:45 64 15 79/57 L 95 09/07/21 12:40 69 17 97 09/07/21 12:30 64 16 97 09/07/21 12:20 71 16 97 09/07/21 12:15 66 17 88/63 L 97 09/07/21 12:12 69 16 87/62 L 95 09/07/21 12:10 78 18 96 09/07/21 12:09 77 14 97 09/07/21 12:02 74 19 78/56 L 97 09/07/21 11:47 106 H 22 97 09/07/21 11:23 37.0 C 101 H 18 115/62 93 Laboratory Results Abnormal lab results 09/07/21 09/07/21 09/07/21 Range/Units 11:37 11:37 13:01 WBC 4.10 L (4.8-10.8) K/uL MPV 11.7 H (7.4-10.4) fL Glucose 136 H (70-99(Fasting)) mg/dl Troponin I High Sens 249.0 H* (0-14) pg/ml Diagnostic Findings XR chest 1V portable HISTORY: 56 years-old Female Allergic reaction acute shortness of breath COMPARISON: Chest radiograph 01/15/2019 TECHNIQUE: Portable AP view of the chest FINDINGS: Cardiomediastinal and hilar silhouettes are within normal limits. There is no pneumothorax, pleural effusion, airspace consolidation or overt pulmonary edema. The bones of the chest appear grossly intact. Mild lower thoracic levoscoliosis. IMPRESSION: No acute process. Medications Administered ER Medications Given: Diphenhydramine 50mg IV Famotidine 20mg IV Solu-Medrol 125mg IV Epinephrine 0.3mg IM (incorrectly administered as IV) ECG Rate (beats per minute): 70 Rhythm: normal sinus Findings: + nonspecific-ST abn (Widespread), + ST depression (Inferior) and + T- wave inversion (Widespread) Comparison ECG Date: from (January 15, 2019 ) Change: the following changes noted (ischemic changes as above are new) Code Status & VTE Plan Code Status Full VTE Prophylaxis Plan VTE Prophylaxis will be ordered: No Reason for no VTE drug order: Treatment not indicated Reason for no VTE mechanical prophylaxis: Treatment not indicated PG Care Time/CCT Total # of Minutes Spent Total Time Spent with Patient: Total time spent is greater than 50% in coordination of care (as documented) at patient's floor/unit and/or counseling patient: Coding Level of Care Code 26171 Initial Inpt Care Lvl 3 Diagnoses Anaphylactic reaction to bee sting T63.441A Encounter type: initial encounter Injury intent: accidental or unintentional Acute hypotension I95.9 Accidental medication error T50.901A NSTEMI (non-ST elevated myocardial infarction) I21.4 Hematuria R31.0 Hematuria type: gross (1) Anaphylactic reaction to bee sting Encounter type: initial encounter Injury intent: accidental or unintentional Qualified Code(s): T63.441A - Toxic effect of venom of bees, accidental (unintentional), initial encounter (2) Hematuria Hematuria type: gross Qualified Code(s): R31.0 - Gross hematuria
--- NOTE | 2021-09-07 16:41 | XCELERA ---
[id number]
[2021-09-07] MEDS ORDERED: LACTATED RINGER'S 1,000 ML IV STA (16:53)
[2021-09-07] MEDS ORDERED: POLYETHYLENE (MIRALAX) 17 GM PACK PO PRN (17:18)
[2021-09-07] MEDS ORDERED: ONDANSETRON INJ 2 MG/ML 2 ML VIAL IV PRN (17:18)
[2021-09-07] MEDS ORDERED: ACETAMINOPHEN 325 MG TAB PO PRN (17:18)
[2021-09-07 17:49] LABS: Appearance Urine Clear (Clear); Bacteria Urine Automated 4+ (Negative); Bilirubin Urine Negative (Negative); Blood Urine 3+ (Negative); Color Urine Orange; Epithelial Cell Urine Auto 20-30 /lpf (0-5); Glucose Urine UA Negative (Negative); Ketones Urine 1+ (Negative); Leukocyte Esterase Urine Trace (Negative); Nitrite Urine Positive (Negative); Protein Urine 1+ (Negative); RBC Urine Automated >30 /hpf (0-4); Specific Gravity Urine 1.008 (1.000-1.030); Urobilinogen Urine Negative (Negative); pH Urine 5.5 (4.5-7.5)
[2021-09-07] MEDS: diphenhydrAMINE 50 MG/ML VIAL IV SCH (18:49)
[2021-09-07] MEDS ORDERED: POTASSIUM CHLORIDE CRTAB 20 MEQ TABCR PO STA (21:40)
[2021-09-07] MEDS ORDERED: cefTRIAXone SODIUM 1,000 MG in DEXTROSE 5% 50 ML IV SCH (21:45)
[2021-09-08] MEDS: diphenhydrAMINE 50 MG/ML VIAL IV SCH ×2 (00:21→06:01)
[2021-09-08 07:46] LABS: Hemoglobin 13.1 g/dL (12.0-16.0); Immature Granulocytes # (auto) 0.02 K/uL (0.00-0.02); Immature Granulocytes % (auto) 0.2 %; Lymphocytes # (auto) 1.19 K/uL (1.2-3.4); Lymphocytes % (auto) 9.3 %; Mean Corpuscular Hemoglobin 31.3 pg (25-34); Mean Corpuscular Hgb Conc 33.6 g/dL (32-36); Mean Corpuscular Volume 93.1 fL (80-100); Mean Platelet Volume 11.9 fL (7.4-10.4); Neutrophils # (auto) 10.75 K/uL (1.4-6.5); Neutrophils % (auto) 83.5 %; Platelet Count 181 K/uL (130-400); RDW Coefficient of Variation 13.9 % (11.5-14.5); RDW Standard Deviation 47.2 fL (36.4-46.3); Red Blood Count 4.19 M/uL (4.2-5.4); White Blood Count 12.86 K/uL (4.8-10.8)
[2021-09-08 08:06] LABS: Albumin Globulin Ratio 1.7 (0.9-2); Albumin Level 3.7 gm/dl (3.4-5.0); BUN Creatinine Ratio 16.2 (10-20); Bilirubin,Total 0.3 mg/dl (0.2-1.0); Calcium 8.5 mg/dl (8.5-10.1); Creatinine Clr Calc Pharmacy 74.8 ml/min; Est GFR (African American) 111.8 ml/min; Est GFR (Non-African American) 96.4 ml/min; Globulin 2.2 gm/dl (2.5-4.0); Potassium 4.1 mmol/L (3.5-5.1); Total Protein 5.9 gm/dl (6.0-8.3)
--- NOTE | 2021-09-08 08:14 | Electrocardiogram Report ---
Test Reason : Blood Pressure : / mmHG Vent. Rate : 070 BPM Atrial Rate : 070 BPM P-R Int : 136 ms QRS Dur : 066 ms QT Int : 446 ms P-R-T Axes : 018 061 064 degrees QTc Int : 481 ms Normal sinus rhythm Low voltage QRS Minimally Prolonged QT Abnormal ECG When compared with ECG of 07-SEP-2021 11:59, ST depression in multiple leads no longer present T-wave inversion in multiple leads no longer present Confirmed by Salvador Fields ([id number]) on 09/08/2021 8:13:57 AM Referred By: Sheng Noble Confirmed By:Salvador Fields
[2021-09-08 08:17] LABS: Estimated Average Glucose 114 mg/dl; Hemoglobin A1C 5.6 % (4.5-5.6)
[2021-09-08] MEDS ORDERED: TAMOXIFEN CITRATE 10 MG TABLET PO SCH (09:00)
[2021-09-08] MEDS ORDERED: TOCOPHERYL, DL-ALPHA 400 UNITS 180 MG CAP PO SCH (09:00)
[2021-09-08] MEDS ORDERED: MULTIVITAMIN TAB PO SCH (09:00)
--- NOTE | 2021-09-08 13:51 | Discharge Summary ---
Date of Service September 08, 2021 Admission HPI Per Admitting Provider Mikayla Cuenca is a 56 year old female who presents to the ER with a bee sting. Patient noticed x2 bee stings on left thigh and below bra line on right side of her chest. Occurred around 10:15am. She started having intense itching everywhere therefore took Benadryl and acetaminophen. She then started noticing right facial swelling therefore decided to come to the emergency room. She noticed some mild shortness of breath while in the emergency room but without any throat or lip swelling. In the ER she was prescribed IV diphenhydramine, famotidine, Solu-medrol and IM epinephrine. Following administration of this she became hypotensive with BP 78/56 and the patient reports she felt cramping sensation all over with horrible headache and severe stomach cramp - she is unsure exactly how long this sensation lasted but she reports minutes but less than 5 minutes. EKG showed widespread TWI after medications were given and repeat EKG these have now resolved and patient has no ongoing chest pain. Troponin I 249 pg/ml. BP improved over the next 1.5 hours as NSS 1L bolus given. On suspicion epinephrine was administered IV rather than IM the patient confirmed she had no IM injection. I brought this the attention of the ER charge nurse who confirmed with the administrating RN that epinephrine was administered incorrectly intravenously. Before being seen she also had an episode of gross hematuria while in the ER. She had no urinary complaints prior coming to the ER however notes having a urinary tract infection in January 2021 with symptom of urgency which resolved with antibiotics. Although curiously urine culture at that time grew lactobacillus only. Prior to ER she denies any hematuria, urinary frequency, urgency, CVA tenderness, fever or chills. The patient reports no significant history of prior allergic reactions. She reports a history of chest pain that occurs at night for which she massages it (although unknown whether this helps), usually lasts for 2-5 minutes, she doesn't notice it during the day (or at least doesn't pay attention to it) and non-positional, exertional or worse in inspirational. She has good exercise tolerance and walks and bikes regularly without chest pain or shortness of breath. Principal Diagnosis Anaphylactic reaction to bee sting Discharge Exam Constitutional WD/WN, vitals as above Eyes EOM intact bilaterally; no conjunctival abnormality ENMT external ear and nose normal, oropharynx normal Neck trachea midline, no thyromegaly normal visual inspection Respiratory normal respiratory effort, lungs clear to auscultation no respiratory distress Cardiovascular RRR, no murmur, no edema Gastrointestinal (Abdomen) Inspection/Auscultation: abdomen normal to inspection; abdomen not distended Musculoskeletal no cyanosis or clubbing, extremities motor strength 5/5 Skin no rashes, warm and dry Neurologic moves all extremities and awake Psychiatric Orientation: alert, oriented to person and cooperative Discharge Data Allergies Allergy/AdvReac Type Severity Reaction Status Date / Time bee pollen Allergy Severe facial Verified 09/07/21 15:40 swelling,urticaria adhesive tape AdvReac Mild SKIN Verified 09/07/21 15:40 SENSITIVE Consultations 09/07/21 15:12 ED Decision to Admit Stat Hospital Course (1) Anaphylactic reaction to bee sting: First ever anaphylactic reaction to bee sting. 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 Last sting was about 1 month ago, and she had prolonged pain and itching at the site, but no swelling. - Case discussed with statue maker - Dr. Linda - Discharged with Epi-Pen and instructions on its use. Clearly instructed to call 911 if she has another sting and has any facial swelling/shortness of breath. Per statue maker, if Epi-Pen resolves symptoms, she can go to the ER, but does not need an ambulance. - Dr. Linda will have his materials scheduler reach out and get appointment as soon as able. (2) Accidental medication error: Epinephrine given IV rather than IM. Concern for NSTEMI or other issue; however, it was felt that bee sting itself may have caused the low blood pressure. - Incident report to be filled in by charge nurse Aster as discussed. - Patient informed of accidental medication error. (3) NSTEMI (non-ST elevated myocardial infarction): EKG widespread TWI with elevated troponin I increasing consistent with this. Very low suspicion of significant underlying CAD given good exercise tolerance at baseline. LDL 57 [06/02]. - NSTEMI secondary to accidental administration of epinephrine as IV - would still be at risk of arrhythmias post NSTEMI depending on myocardial damage therefore will observe on telemetry. - No need for ASA, heparin, statin, metoprolol etc... unless cardiomyopathy present on TTE - TTE on 09/07 showed normal EF, no valve issues. No further investigation needed as troponin downtrended to 300 by discharge. (4) Acute hypotension: Following epinephrine, diphenhydramine, famotidine, and Solu-Medrol. Thought to be due to epinephrine being IV rather than IM, but unclear if bee sting was actually the cause. - Resolved with IV fluids and no signs/symptoms heart failure (5) Hematuria: Occurred after administration of medications as above. Unclear mechanism of action for this ?ischemic event to bladder although currently not having any pain here for concern of perforation or ongoing ischemia. - UA showed lots of RBCs - Treat for assumed UTI x 3 days. Asked to follow up with PCP in 1-2 weeks to be sure hematuria resolves. Total Time Total Time Spent Total Time Spent (In Minutes): 35 Discharge Plan Discharge Items Patient Disposition: Home - Self-Care Reason For Visit: BEE STING Discharge Diagnosis: Anaphylactic reaction to bee sting Activity: Resume your previous activity Non-emergency contact: Primary Care Provider and Specialist Call non-emergency contact if: your symptoms worsen Follow-up/Referrals: Sheng Noble III, CRNP [Primary Care Provider] - 09/21/21 4:00 pm (Please follow up with JOSEFINA Curtis on Tuesday09/21/21 at 4:00 pm. Please arrive to the office at 3:45 pm for your appointment. If you are unable to keep this appointment, please call the office to resc hedule at [phone].) Jose J Linda MD [Physician] - (Please schedule a visit with Dr. Linda as soon as they are able. If you don't hear from his office in 1 business day, please call them.) Diet: Regular Addtl Attending Provider Instructions: Ms. Cuenca, You were admitted to the hospital after having itching, swelling, and low blood pressure that we are very concerned was related to your bee stings. This would qualify as an anaphylactic reaction which is the most severe kind. Unfortunately, if it happened once, it is quite likely to happen again if you are stung by honey bees again. Your blood pressure dropped after getting the medications in the ER, but after speaking with Dr. Linda, we feel this was probably more due to the bee sting i tself rather than the epinephrine that you were given. We are sending you home with a prescription for Epi-Pens in case you are stung again. If you are stung, give yourself an injection. Take Benadryl & famotidine as well. If you have ANY sensation of swelling by your face, throat, mouth, neck, or torso, or have shortness of breath, call 9-1-1 immediately. DO NOT call your PCP. DO NOT call your or other family. DO NOT drive yourself or get drive to the hospital. I do not mean to scare you, but minutes count here, and the faster you are assessed by a professional medical provider, the safer you will be. If you have to use the Epi-Pen at all, but feel well afterwards, Dr. Linda recommends you still come to the hospital for evaluation, but do not need to call an ambulance. Please schedule a visit with Dr. Linda as soon as they are able. If you don't hear from his office in 1 business day, please call them. When all this was happening, you had blood in your urine. Please finish the 2 days of antibiotics. Take the first dose before bedtime on 09/08, then twice a day until gone. In 1-2 weeks, please see your PCP to have a repeat check done to ensure there is no blood in the urine any longer. Pending Studies at Discharge: No Stand-Alone Forms: My [facility], Smoking Cessation Medications and DC Order Prescriptions: New epinephrine 1 mg/mL kit See Rx Instructions .ROUTE .COMPLEX PRN (Reason: anaphylaxis) Qty: 2 RF: 0 cefdinir 300 mg capsule 300 mg PO BID Qty: 4 RF: 0 Continued tamoxifen 20 mg tablet 20 mg PO QAM RF: 0 multivitamin Tablet 1 tab PO QAM RF: 0 vitamin E 400 unit Tablet 400 unit PO DAILY RF: 0 Discharge Orders: Discharge Order (Routine); Ordered 09/08/21 Ordered By: Jairo Mace Admission Data Admit Date/Time: 09/07/21 16:11 Attending Provider: Jairo Mace Admit Provider: Alvin Gan Primary Care Provider: Sheng Noble III Other Providers: Jairo Mace Other Interventions: Discharge Summary Assessment (RN) Last Done: 09/08/21 11:27 Coding Level of Care Code 29655 OBS Care - Discharge Diagnoses Accidental medication error T50.901A NSTEMI (non-ST elevated myocardial infarction) I21.4 Acute hypotension I95.9 Anaphylactic reaction to bee sting T63.441A Encounter type: initial encounter Injury intent: accidental or unintentional Hematuria R31.0 Hematuria type: gross
== END 2021-09-08 12:13 | disposition home or self-care (01) ==
LOC: EDINP 11:18 → ED 11:18 → SUATTDRO 16:11 → 2E 18:57